=== PATIENT | female | born 1965 | race Caucasian/White ===

== ENCOUNTER 2017-10-06 08:32 | Outpatient (RCR) | payer BC ==
--- NOTE | 2017-10-01 12:09 | Diagnostic Imaging Report ---
INDICATION: Kidney stones. TIME OF EXAM: 11:40 a.m. COMPARISON: Correlation is made with prior study from 04/16/2016. FINDINGS: Previously noted probable radiopaque renal calculi overlying the lower poles of both kidneys are no longer appreciated. No definite radiopaque urinary tract calculi are seen. There are numerous calcifications in the pelvis, perhaps phleboliths. The bowel gas pattern is unremarkable. IMPRESSION: No definite radiopaque urinary tract calculi are detected. Dictated by: Dictated on workstation # [id number]
[~2017-10-06 08:32] MED LIST: HYDR2TAB30 PO; LEVO75TA6 PO; NITR-68 PO; PROP10TA8 PO; TRAM-21 PO
== END 2017-12-30 | disposition home or self-care (01) ==
LOC: RAD 08:32
PROVIDERS: ATTEND Urology
DX: Z09 Encounter for follow-up examination after completed treatment for conditions other than malignant neoplasm (principal); Z87.442 Personal history of urinary calculi
CPT/HCPCS: 36415; 74018; 82140; 82340; 82507; 82570; 83735; 83945; 83986; 84105; 84133; 84300; 84392; 84560

== ENCOUNTER → 2018-09-27 | Outpatient (CLI) | payer BC ==
--- NOTE | 2018-09-27 18:03 | Diagnostic Imaging Report ---
INDICATION: History of kidney stones, having abdominal pressure. TIME OF EXAM: 4:05 p.m. COMPARISON: Correlation is made with prior study from 10/01/2017. FINDINGS: There is a calcific density overlying the upper pole of the left kidney approximately 7 mm in size. This is not well seen on prior exam. No definite right-sided urinary tract calculi are seen. There are numerous calcific densities in the pelvis which appear similar to prior exam and may represent phleboliths. No ureteral calculi are seen. The bowel gas pattern is unremarkable. IMPRESSION: There are findings suggestive of a 7 mm calculus in the upper pole of the left kidney. Additional questionable calcific densities are noted in the mid left kidney as well which may represent renal calculi. CT urinary tract study could be performed for further evaluation, if clinically indicated. No definite ureteral calculi are seen. Dictated by: Dictated on workstation # [id number]
== END ==
LOC: RAD 15:19
PROVIDERS: ATTEND Urology
DX: N28.89 Other specified disorders of kidney and ureter (principal); Z87.442 Personal history of urinary calculi
CPT/HCPCS: 74018

== ENCOUNTER 2018-10-22 05:34 | Outpatient (CLI) | payer BC ==
[~2018-10-22] VITALS: Ht 172.7 cm; Wt 104.3 kg
[2018-10-22] MEDS ORDERED: NF-URO10 PO (09:53)
[2018-10-22] MEDS ORDERED: HYDR25TA4 PO (09:53)
[2018-10-22] MEDS ORDERED: LEVO75TA6 PO (09:53)
== END 2018-10-22 10:15 | disposition home or self-care (01) ==
LOC: PREOP 05:34
PROVIDERS: ATTEND Urology
DX: Z01.818 Encounter for other preprocedural examination (principal)

== ENCOUNTER 2018-10-26 06:10 | Day surgery (SDC) | payer BC ==
[~2018-10-26] VITALS: Ht 172.7 cm; Wt 104.3 kg
[~2018-10-26 06:10] MED LIST changes: +HYDR25TA4 PO; +NF-URO10 PO
[2018-10-26] MEDS ORDERED: LEVOFLOXACIN 250 MG/50 ML IVPB 50 ML IV ONE (06:30)
[2018-10-26 06:35] VITALS: BP 129/79
[2018-10-26] MEDS ORDERED: LACTATED RINGERS 1,000 ML IV PRN (06:37)
[2018-10-26] MEDS ORDERED: SCOPOLAMINE 1.5 MG (TRANSDERM-SCOP) PATCH ONE (06:40)
[2018-10-26] MEDS ORDERED: LEVOFLOXACIN 250 MG/50 ML IVPB 50 ML ONE (06:40)
[2018-10-26] MEDS ORDERED: ONDANSETRON 4 MG/2 ML (SDV) Z0FRAN ONE ×2 (06:40→06:54)
[2018-10-26] MEDS ORDERED: FAMOTIDINE 20MG/2ML IV (PEPCID) ONE (06:40)
[2018-10-26] MEDS ORDERED: ONDANSETRON 4 MG/2 ML (SDV) Z0FRAN IV ONE (06:45)
[2018-10-26] MEDS ORDERED: FAMOTIDINE 20MG/2ML IV (PEPCID) IV ONE (06:45)
[2018-10-26] MEDS ORDERED: SCOPOLAMINE 1.5 MG (TRANSDERM-SCOP) PATCH TOP ONE (06:45)
[2018-10-26] MEDS ORDERED: MIDAZOLAM 2 MG/2 ML (VERSED) VIAL ONE (06:54)
[2018-10-26] MEDS ORDERED: LIDOCAINE PF 2% 5 ML (XYLOCAINE) VIAL ONE (06:54)
[2018-10-26] MEDS ORDERED: proPOfol 200 MG/20 ML (DIPRIVAN) VIAL IV ONE (06:54)
[2018-10-26] MEDS ORDERED: fentaNYL INJECTION 100 MCG/2 ML AMP ONE (06:54)
[2018-10-26] MEDS ORDERED: KETOROLAC 30 MG/ML VIAL ONE (06:55)
[2018-10-26] MEDS ORDERED: FUROSEMIDE 40 MG/4 ML INJ (LASIX) ONE (06:55)
[2018-10-26] MEDS ORDERED: DEXAMETHASONE 10 MG/ML (DECADRON) 1 ML VIAL ONE (06:55)
[2018-10-26] MEDS ORDERED: SEVOFLURANE (ULTANE) 15 ML INHAL SOLN ONE ×3 (06:56→07:21)
--- NOTE | 2018-10-26 07:01 | Progress Note-Pre Operative ---
Pre-Operative Progress Note H&P Reviewed The H&P was reviewed, patient examined and no changes noted. Date Seen by Provider: Oct 26, 2018 Time Seen by Provider: 07:01 Date H&P Reviewed: Oct 26, 2018 Time H&P Reviewed: 07:01 Pre-Operative Diagnosis: LT RENAL STONE LOVE HERRON MD Oct 26, 2018 07:01
[2018-10-26] MEDS: LACTATED RINGERS 1,000 ML IV PRN ×2 (07:05→07:43)
--- NOTE | 2018-10-26 07:35 | Progress Note-Post Operative ---
Post-Operative Progess Note Surgeon (s)/Senior Process Engineer (s) Surgeon LOVE HERRON MD Senior Process Engineer: NONE Pre-Operative Diagnosis LT RENAL STONE Post-Operative Diagnosis SAME Procedure & Operative Findings Date of Procedure 10/26/18 Procedure Performed/Findings LT ESWL Anesthesia Type GENERAL Estimated Blood Loss Estimated blood loss (mL): NONE Specimens/Packing Specimens Removed NONE Packing: NONE LOVE HERRON MD Oct 26, 2018 07:35
--- NOTE | 2018-10-26 07:37 | Discharge Inst-Urology ---
Discharge Inst-Urology Discharge Medications New, Converted, or Re-newed RX: RX on Chart Patient Instructions/Follow Up Plan Please make appointment to been seen in office in 2 weeks. KUB prior to it KUB on way home Post ESWL instructions Increase oral fluids for 48 hours and then as needed. Diet and Activity as tolerated. If questions or concerns contact your physician Or seek help at emergency department. LOVE HERRON MD Oct 26, 2018 07:37
[2018-10-26] MEDS ORDERED: PHENYLEPHRINE 100 MCG/ML 10 ML (ANESTHESIA) SYR ONE (07:45)
[2018-10-26] MEDS ORDERED: ONDANSETRON 4 MG/2 ML (SDV) Z0FRAN IVP PRN (08:00)
[2018-10-26] MEDS ORDERED: HYDROmorphone 2 MG/ML VIAL (DILAUDID) IV ONE (08:00)
[2018-10-26] MEDS ORDERED: morphine INJ 10 MG/ML 1ML (SYR OR VIAL) IVP ONE (08:00)
[2018-10-26] MEDS ORDERED: PROMETHAZINE INJ 25 MG/ML (PHENERGAN) AMP IVP ONE (08:00)
[2018-10-26] MEDS ORDERED: MEPERIDINE (DEMEROL) INJ 50 MG/ML IVP ONE (08:00)
[2018-10-26 08:30] VITALS: BP 124/75
[2018-10-26] MEDS ORDERED: TAMS0.4C98 PO (08:40)
[2018-10-26] MEDS ORDERED: TRAM50TA2 PO (08:40)
[2018-10-26] MEDS ORDERED: NITR-65 PO (08:40)
[2018-10-26 09:00] VITALS: BP 123/76
[2018-10-26 09:30] VITALS: BP 119/79
[2018-10-26 10:00] VITALS: BP 119/79
--- NOTE | 2018-10-26 10:29 | OPERATIVE REPORT ---
DATE OF SERVICE: 10/26/2018 PREOPERATIVE DIAGNOSIS: Left renal stone. POSTOPERATIVE DIAGNOSIS: Left renal stone. OPERATION PERFORMED: Left ESWL. SURGEON: Bal Herron MD. ANESTHESIA: General. COMPLICATIONS: None. DESCRIPTION OF PROCEDURE: Under satisfactory general anesthesia, the patient in supine position on the ESWL table, the left renal stone was localized. Shocks were delivered at a kV of 4, 2000 shocks completely fragmented the stone that was hardly seen. The patient received 30 mg of Toradol and 40 mg of Lasix IV at the end of the procedure. She tolerated the procedure and anesthesia well and was sent to recovery room in stable condition. Job ID: [id number] DocumentID: [id number] Dictated Date: 10/26/2018 07:41:35 Block Splitter Operator Date: 10/26/2018 10:28:21 Dictated By: BAL HERRON MD
--- NOTE | 2018-10-26 11:49 | Diagnostic Imaging Report ---
INDICATION: Left-sided renal stones. TECHNIQUE: Two supine views of the abdomen at 06:54 a.m. CORRELATION STUDY: 09/27/2018. FINDINGS: 6 mm calcification in the superior pole of the left kidney persists. Additional calcification over the tip of the L3 transverse process is present. This may simply represent projection of the transverse process. Multiple calcifications in the bilateral hemipelves. There is large amount of overlying bowel gas and stool which obscure detail. Gas to the level of the rectum. IMPRESSION: 1. 6 mm calcification projecting over superior pole of the left kidney is generally stable. Dictated by: Dictated on workstation # [id number]
--- NOTE | 2018-10-26 14:02 | Diagnostic Imaging Report ---
INDICATION: Post extracorporeal shock wave lithotripsy. TECHNIQUE: Two supine views of the abdomen at 9:51 AM. CORRELATION STUDY: Earlier this same day. FINDINGS: The previously noted calcification superimposed over the superior pole of the left kidney appears smaller and somewhat fragmented. Largest area of calcification currently measures 4 mm. No definitive calcification along the expected course of the left ureter. Multiple calcifications of the bilateral hemipelvis are likely largely vasculature and appear generally stable. IMPRESSION: Slightly more fragmented appearance about the previously noted calcification in the superior pole of the left kidney. Dictated on workstation # [id number]
== END 2018-10-26 10:10 | disposition home or self-care (01) ==
LOC: SDC 06:10
PROVIDERS: ATTEND Urology
DX: N20.0 Calculus of kidney (principal); E03.9 Hypothyroidism, unspecified; Z79.899 Other long term (current) drug therapy
CPT/HCPCS: 74018; 87081

== ENCOUNTER → 2018-11-09 | Outpatient (CLI) | payer BC ==
[~2018-11-09] MED LIST changes: +NITR-65 PO; +TAMS0.4C98 PO; +TRAM50TA2 PO
--- NOTE | 2018-11-09 13:29 | Diagnostic Imaging Report ---
Indication: Nephrolithiasis. Findings: There appear to be a few residual tiny stone fragments in the left kidney. Bowel gas pattern is nonspecific. Osseous structures are unremarkable. Impression: There appear to be a few remaining stone fragments in the left kidney. Dictated by: Dictated on workstation # [id number]
== END ==
LOC: RAD 12:43
PROVIDERS: ATTEND Urology
DX: N20.0 Calculus of kidney (principal)
CPT/HCPCS: 74018

== ENCOUNTER 2019-10-31 07:45 | Outpatient (RCR) | payer BC ==
--- NOTE | 2019-10-06 09:51 | Diagnostic Imaging Report ---
EXAMINATION: Supine abdomen at 9:30 a.m. INDICATION: Nephrolithiasis. FINDINGS: The prior abdomen exam of 11/09/2018 noted a few tiny fragments of calculi overlying the left kidney. Those findings are difficult to appreciate on this study. There may be a new 2 mm calculus overlying the superior pole of the left kidney, however. There also appears to be a similar-sized calculus overlying the inferior pole of the right kidney. As noted on the prior exam, there are numerous calculi overlying the pelvis. These are most likely phleboliths. There is gas in both the large and small bowel in a nonspecific fashion. There is no evidence for a bowel obstruction. There is a moderate amount of fecal material throughout the colon. There is no mass or organomegaly appreciated. The osseous structures are intact. IMPRESSION: 1. There appear to be small calculi overlying each kidney. If further study is desired, then CT would be recommended. 2. There is no acute abnormality identified. Dictated by: Dictated on workstation # [id number]
[~2019-10-31 07:45] MED LIST changes: -LIDOCAINE 1% INJ 20 ML 20 ML VIAL INJ ONE
== END 2020-01-04 | disposition home or self-care (01) ==
LOC: RAD 07:45 → EDSTATUS 11-04 19:56
PROVIDERS: ATTEND Urology
DX: Z87.442 Personal history of urinary calculi (principal)
CPT/HCPCS: 74018; 82140; 82340; 82507; 82570; 83735; 83945; 83986; 84105; 84133; 84300; 84392; 84560

== ENCOUNTER → 2019-10-31 | Outpatient (CLI) | payer BC ==
[~2019-10-31] VITALS: Ht 170.2 cm; Wt 100.0 kg
[~2019-10-31] MED LIST changes: +LIDOCAINE 1% INJ 20 ML 20 ML VIAL INJ ONE; -TAMS0.4C98 PO; +TMSL.4C PO; -TRAM50TA2 PO; +TRM50T PO
--- NOTE | 2019-10-31 10:47 | Diagnostic Imaging Report ---
INDICATION: Thyroid nodule. TECHNIQUE AND FINDINGS: After explaining the risks, benefits, and alternatives of the procedure to the patient, written consent was obtained. The patient's left neck was prepped and draped in the usual sterile fashion. Local anesthesia was obtained with 2% lidocaine. Four fine-needle aspirates were obtained of the left thyroid nodule under ultrasound guidance. Following the procedure, the needle was removed and adequate hemostasis was obtained. The patient tolerated the procedure well and left the Department in stable condition. IMPRESSION: Successful ultrasound guided left thyroid biopsy as described. Dictated by: Dictated on workstation # [id number]
== END ==
LOC: RAD 08:55
PROVIDERS: ATTEND Otolaryngology Otolaryngology/Facial Plastic Surgery
DX: E04.1 Nontoxic single thyroid nodule (principal)

== ENCOUNTER → 2020-10-18 | Outpatient (CLI) | payer BC ==
--- NOTE | 2020-10-18 15:48 | Diagnostic Imaging Report ---
INDICATION: History of kidney stones. COMPARISON: 10/06/2019. FINDINGS: No definite calculi are seen overlying the renal shadows on today's exam. No calcifications are seen along the path of the ureters. There are multiple phleboliths again noted in the pelvis. Bowel gas pattern is normal. No organomegaly. IMPRESSION: No evidence of nephrolithiasis on today's exam. Dictated by: Dictated on workstation # [id number]
== END ==
LOC: RAD 15:04
PROVIDERS: ATTEND Urology
DX: Z87.442 Personal history of urinary calculi (principal)
CPT/HCPCS: 74018

== ENCOUNTER 2021-10-28 16:03 | Outpatient (RCR) | payer BC ==
--- NOTE | 2021-10-28 16:36 | Diagnostic Imaging Report ---
INDICATION: Nephrolithiasis. EXAMINATION: KUB at 4:20 PM. FINDINGS: There is a 1.5 mm calcification projecting over the inferior pole of the right kidney that could be a calculus. The left kidney is unremarkable. There are multiple phleboliths in the pelvis. IMPRESSION: Questionable right nephrolithiasis. Dictated by: Dictated on workstation # [id number]
== END 2021-11-11 | disposition home or self-care (01) ==
LOC: RAD 16:03
PROVIDERS: ATTEND Urology
DX: N20.0 Calculus of kidney (principal)
CPT/HCPCS: 74018

== ENCOUNTER 2021-11-20 07:30 | Outpatient (RCR) | payer BC | END 2021-12-12 | disposition home or self-care (01) | LOC: RAD 07:30 | PROVIDERS: ATTEND Urology | DX: Z87.442 Personal history of urinary calculi (principal) | CPT/HCPCS: 82140; 82340; 82507; 82570; 83735; 83945; 83986; 84105; 84133; 84300; 84392; 84560 ==